=== PATIENT | female | born 1955 | race Caucasian/White ===

== ENCOUNTER 2017-11-11 17:01 | Emergency (ER) | payer OTHER ==
[~2017-11-11] VITALS: Ht 157.5 cm; Wt 63.5 kg
[2017-11-11] MEDS ORDERED: TRAMADOL 50 MG50 MG PO (17:14)
[2017-11-11] MEDS ORDERED: ZANTAC 150MG T150 MG PO (17:14)
[2017-11-11 17:35] LABS: URINE BILIRUBIN NEGATIVE (Negative); URINE BLOOD TRACE (Negative); URINE CLARITY CLEAR; URINE COLOR YELLOW; URINE GLUCOSE-RANDOM NEGATIVE (Negative); URINE KETONES NEGATIVE (Negative); URINE LEUKOCYTES TRACE (Negative); URINE NITRITE NEGATIVE (Negative); URINE PROTEIN NEGATIVE (Negative); URINE UROBILINOGEN 0.2 E.U./dl (0.2-1.0)
[2017-11-11 17:38] LABS: ABSOLUTE BASOPHILS 0.1 thou/uL (0.0-0.2); ABSOLUTE EOSINOPHILS 0.2 thou/uL (0.0-0.7); ABSOLUTE LYMPHOCYTES 2.9 thou/uL (0.8-5.3); ABSOLUTE MONOCYTES 0.8 thou/uL (0.0-1.2); ABSOLUTE NEUTROPHILS 4.9 thou/uL (1.6-8.1); EOSINOPHILS 2.2 %; HEMATOCRIT 45.5 % (37.0-47.0); HEMOGLOBIN 15.5 gm/dL (12.0-15.0); LYMPHOCYTES 32.1 %; MCH 30.5 pg (26.0-34.0); MCHC 34.1 g/dL (28.0-37.0); MCV 89.6 fL (80.0-100.0); MONOCYTES 9.3 %; MPV 7.8 fl. (7.2-11.1); NUCLEATED RBCS 0 /100WBC; PLATELET COUNT* 293 thou/uL (150-400); POLYS 55.4 %; RBC 5.07 mil/uL (4.20-5.00); RDW-CV 13.9 % (10.5-14.5); WBC 8.9 thou/uL (4.0-11.0)
[2017-11-11 17:47] LABS: BACTERIA None Seen /HPF (None Seen); CASTS None Seen /LPF (None Seen); CRYSTALS None Seen /LPF (None Seen); MUCUS None Seen strn/LPF (None Seen); SQUAMOUS 4-10 Moderate /LPF (0-3); URINE RBC 0-2 Rare /HPF (0-2); URINE WBC 0-5 Rare /HPF (0-5)
[2017-11-11 17:48] LABS: ANION GAP 10 mmol/L (7-16); BUN 16 mg/dL (7-18); CALCIUM 9.3 mg/dL (8.5-10.1); CHLORIDE 106 mmol/L (98-107); CO2 30 mmol/L (21-32); CREATININE 0.9 mg/dL (0.6-1.3); GLUCOSE 68 mg/dL (70-99); POTASSIUM 3.8 mmol/L (3.5-5.1); SODIUM 146 mmol/L (136-145)
[2017-11-11 17:54] LABS: ALBUMIN 3.9 g/dL (3.4-5.0); ALKALINE PHOSPHATASE 84 U/L (46-116); LIPASE 105 U/L (73-393); SGOT 13 U/L (15-37); SGPT 14 U/L (30-65); TOTAL BILIRUBIN 0.2 mg/dL (<0.1-1.0); TOTAL PROTEIN 8.3 g/dL (6.4-8.2); TROPONIN-I LEVEL <0.06 ng/mL (<0.06)
[2017-11-11] MEDS ORDERED: PROTONIX40 M1 PO (20:58)
[2017-11-11] MEDS ORDERED: FLEXERIL PO (20:58)
[2017-11-11 21:06] VITALS: BP 110/70
--- NOTE | 2017-11-12 09:52 | EKG ---
[place] [address] ELECTROCARDIOGRAM REPORT Name: JACQUIKAELA Room: [facility]#: [id number] Admission: 11/11/17 Attend Phys: Discharge: 11/11/17 Date of : 59 Report #: [id number] THIS REPORT FOR: //name// [facility] ED Test Date: 2017-11-11 Test Time: 17:14:47 Pat Name: KAELA OSMAN Department: Room: Gender: F Medical Practice Administrator: [place] : 1955 Requested By: Abby Estrella Order Number: [id number] MD: Delmer Meza Measurements Intervals [place] Rate: 117 P: 85 DC: 145 QRS: 72 QRSD: 84 T: 68 QT: 341 QTc: 476 Interpretive Statements Sinus tachycardia Right atrial enlargement Borderline prolonged QT interval Baseline wander in lead(s) II,aVF No previous ECG available for comparison Electronically Signed On 11-12-2017 9:51:54 CDT by Delmer Meza [email or web address] <ELECTRONICALLY SIGNED> By: Delmer Meza MD, [facility] 11/12/17 0951 1714 13 Delmer Meza MD, [facility] /EPI
== END 2017-11-11 21:06 | disposition home or self-care (01) ==
LOC: M.ERS 17:01
PROVIDERS: Nurse Practitioner Family
DX: R10.31 Right lower quadrant pain (principal); K21.9 Gastro-esophageal reflux disease without esophagitis

== ENCOUNTER 2020-05-14 11:20 | Emergency (ER) | payer OTHER ==
[~2020-05-14] VITALS: Ht 157.5 cm; Wt 72.6 kg
[~2020-05-14 11:20] MED LIST: FLEXERIL PO; PROTONIX40 M1 PO; TRAMADOL 50 MG50 MG PO; ZANTAC 150MG T150 MG PO
[2020-05-14] MEDS ORDERED: NORCO 5-325 TA1 EAC2 PO (12:03)
[2020-05-14 12:15] VITALS: BP 137/96
== END 2020-05-14 12:15 | disposition home or self-care (01) ==
LOC: M.ERS 11:20
DX: S93.491A Sprain of other ligament of right ankle, initial encounter (principal); K21.9 Gastro-esophageal reflux disease without esophagitis; W10.8XXA Fall (on) (from) other stairs and steps, initial encounter; Y93.89 Activity, other specified; Y92.89 Other specified places as the place of occurrence of the external cause; Y99.8 Other external cause status

== ENCOUNTER 2020-07-28 06:48 | Emergency (ER) | payer OTHER ==
[~2020-07-28] VITALS: Ht 157.5 cm; Wt 72.6 kg
[~2020-07-28 06:48] MED LIST changes: +NORCO 5-325 TA1 EAC2 PO
[2020-07-28] MEDS ORDERED: BACTRIM DS TAB1 EAC1 PO (07:47)
[2020-07-28] MEDS ORDERED: NORCO 5-325 TA1 EAC2 PO (08:07)
[2020-07-28 08:19] VITALS: BP 132/80
== END 2020-07-28 08:20 | disposition home or self-care (01) ==
LOC: M.ERS 06:48
DX: J86.9 Pyothorax without fistula (principal); K21.9 Gastro-esophageal reflux disease without esophagitis; F17.210 Nicotine dependence, cigarettes, uncomplicated